=== PATIENT | female | born 1945 | race Caucasian/White ===

== ENCOUNTER 2017-05-08 15:18 | Inpatient (IN) | payer MEDICARE ==
[2017-05-08] MEDS ORDERED: 0.9 % SODIUM CHLORIDE 1,000 ML BAG IV ONE (15:58)
[2017-05-08] MEDS ORDERED: PROMETHAZINE HCL 6.25 MG in 0.9 % SODIUM CHLORIDE 100ML 100 ML IVPB ONE (15:59)
[2017-05-08 16:27] LABS: HEMATOCRIT 32.6 % (35.0-47.0); HEMOGLOBIN 10.3 gm/dl (11.6-16.0); MEAN CELL VOLUME 96.2 fl (81-97); MEAN CORPUSCULAR HGB CONC 31.6 g/dl (32-36); MEAN PLATELET VOLUME 8.9 fl (7.4-10.4); PLATELET COUNT 677 K/uL (130-400); RED BLOOD COUNT 3.39 M/uL (3.80-5.40); RED CELL DISTRIBUTION WIDTH 15.7 % (11.5-14.5)
[2017-05-08 16:40] LABS: BILIRUBIN,TOTAL 0.3 mg/dL (0.2-1.0); CREATININE 1.9 mg/dL (0.5-0.9)
[2017-05-08 16:41] LABS: TOTAL PROTEIN 7.1 g/dL (6.6-8.7)
[2017-05-08 16:42] LABS: MEAN CORPUSCULAR HEMOGLOBIN 30.3 pg (27-33)
[2017-05-08 16:43] LABS: WHITE BLOOD COUNT W/O DIFF 24.1 K/uL (4.2-12.2)
[2017-05-08 16:45] LABS: ALB/GLOB RATIO 1.2 (1.1-1.8); ALBUMIN 3.9 g/dL (4.0-5.0)
[2017-05-08 16:53] LABS: URINE APPEARANCE CLOUDY; URINE BILIRUBIN NEGATIVE (NEGATIVE); URINE BLOOD LARGE (NEGATIVE); URINE COLOR ORANGE; URINE GLUCOSE (UA) NEGATIVE (NEGATIVE); URINE KETONE NEGATIVE (NEGATIVE); URINE LEUKOCYTE ESTERASE TRACE (NEGATIVE); URINE NITRITE NEGATIVE (NEGATIVE); URINE UROBILINOGEN 0.2 E.U./dL (0.20 - 1.00)
[2017-05-08 17:06] LABS: URINE BACTERIA NONE SEEN; URINE EPITHELIAL CELLS 0 - 2 (FEW); URINE WBC 21 - 35 (0-2/hpf)
[2017-05-08 17:29] LABS: ROTOVIRUS NOT DETECTED (NOT DETECT)
[2017-05-08 17:47] LABS: CRYPTOSPORIDIUM PARVUM ANTIGEN NOT DETECTED (NOT DETECT)
[2017-05-08 17:48] LABS: GIARDIA LAMBLIA ANTIGEN NOT DETECTED (NOT DETECT)
[2017-05-08 18:07] LABS: MOLECULAR C DIFF TOXIN SCREEN NOT DETECTED (NOT DETECT)
[2017-05-08] MEDS ORDERED: SODIUM CHLORIDE 0.9% IVPB ONE (18:28)
[2017-05-08] MEDS ORDERED: CEFEPIME HCL IVPB ONE (18:28)
--- NOTE | 2017-05-08 19:01 | Emergency Department Record ---
History of Present Illness - General Chief complaint: Fatigue and Weakness Stated complaint: WEAK Time Seen by Provider: 05/08/17 15:48 Source: Patient Mode of Arrival: Wheelchair Limitations: No limitations - History of Present Illness Initial comments: pt has been sick for few months w bronchitis and with utis. she has been on 3 courses of antibiotics including bactrim i zithromax, clindamycin, she feels like she is getting weaker and weaker. pt has had a splenectomy MD Complaint: Generalized weakness, Lack of energy Onset/Timin -: Week(s) Consistency: Getting worse Improves with: None Worsens with: Exertion Associated Symptoms: Denies other symptoms - Elizabeth Coma Scale Eye Response: (4) Open spontaneously Motor Response: (6) Obeys commands Verbal Response: (5) Oriented [place] Total: 15 - Related Data Home Medications Medication Instructions Recorded Confirmed Last Taken Buspirone HCl [Buspar] 10 mg PO TID 05/08/17 05/08/17 Unknown Fluoxetine HCl 60 mg PO DAILY 05/08/17 05/08/17 Unknown Ibuprofen [Motrin] 800 mg PO TID PRN 05/08/17 05/08/17 Unknown Levothyroxine Sodium 75 mcg PO DAILY 05/08/17 05/08/17 Unknown Multivit with Calcium,Iron,Min 1 tab PO DAILY 05/08/17 05/08/17 Unknown [Multiple Vitamins For Women] Sulfamethoxazole/Trimethoprim 800 mg PO DAILY 05/08/17 05/08/17 Unknown [Bactrim Ds Tablet] Allergies Allergy/AdvReac Type Severity Reaction Status Date / Time Penicillins Allergy RASH Verified 05/08/17 15:23 Travel Screening - Travel/Exposure Within Last 30 Days Have you traveled within the last 30 days?: No - Travel/Exposure Within Last Year Have you traveled outside the [place] in the last year?: No - Additonal Travel Details Have you been exposed to anyone with a communicable illness?: No - Travel Symptoms Symptom Screening: None Review of Systems Reviewed: No additional complaints except as noted below Constitutional: Reports: As per HPI, Weakness. Denies: Chills, Fever, Malaise, Night sweats, Weight change Eyes: Reports: As per HPI. Denies: Eye discharge, Eye pain, Photophobia, Vision change ENT: Reports: As per HPI. Denies: Congestion, Dental pain, Ear pain, Epistaxis , Hearing loss, Throat pain Respiratory: Reports: As per HPI. Denies: Cough, Dyspnea, Hemoptysis, Stridor, Wheezes Cardiovascular: Reports: As per HPI. Denies: Arrhythmia, Chest pain, Dyspnea on exertion, Edema, Murmurs, Orthopnea, Palpitations, Paroxysmal nocturnal dyspnea, Rheumatic Fever, Syncope Endocrine: Reports: As per HPI. Denies: Fatigue, Heat or cold intolerance, Polydipsia, Polyuria Gastrointestinal: Reports: As per HPI. Denies: Abdominal pain, Constipation, Diarrhea, Hematemesis, Hematochezia, Melena, Nausea, Vomiting Genitourinary: Reports: As per HPI. Denies: Abnormal menses, Discharge, Dyspareunia, Dysuria, Frequency, Hematuria, Incontinence, Retention, Urgency Musculoskeletal: Reports: As per HPI. Denies: Arthralgia, Back pain, Gout, Joint swelling, Myalgia, Neck pain Skin: Reports: As per HPI. Denies: Bruising, Change in color, Change in hair/ nails, Lesions, Pruritus, Rash Neurological: Reports: As per HPI, Weakness. Denies: Abnormal gait, Confusion, Headache, Numbness, Paresthesias, Seizure, Tingling, Tremors, Vertigo Psychiatric: Reports: As per HPI. Denies: Anxiety, Auditory hallucinations, Depression, Homicidal thoughts, Suicidal thoughts, Visual hallucinations Hematological/Lymphatic: Reports: As per HPI. 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 - GI Hx GI Disorders: No - Hx Genitourinary Disorders: Yes Hx Bladder Problem: Yes (bladder sling) - ENDOCRINE Hx Endocrine Disorders: Yes Hx Diabetes: No Hx Thyroid Disease: Yes - MUSCULOSKELETAL Hx Musculoskeletal Disorders: Yes Hx Arthritis: Yes - PSYCH Hx Psych Problems: No - HEMATOLOGY/ONCOLOGY Hx Hematology/Oncology Disorders: Yes Hx Anemia: Yes Hx Blood Transfusions: Yes Family Medical History Any Significant Family History?: Yes Hx Diabetes: Brother/Sister Hx Heart Disease: Brother/Sister Physical Exam - General General Appearance: Alert, Oriented x3, Cooperative, Mild distress - Head Head exam: Normal inspection - Eye Eye exam: Normal appearance, PERRL, EOMI Pupils: Normal accommodation - ENT ENT exam: Normal exam, Mucous membranes dry, Normal external ear exam, Normal orophraynx Ear exam: Normal external inspection. negative: External canal tenderness Nasal Exam: Normal inspection. negative: Discharge, Sinus tenderness Mouth exam: Normal external inspection, Tongue normal Teeth exam: Normal inspection. negative: Dental caries Throat exam: Normal inspection. negative: Tonsillar erythema, Tonsillar exudate - Neck Neck exam: Normal inspection, Full ROM. negative: Tenderness - Respiratory Respiratory exam: Normal lung sounds bilaterally. negative: Respiratory distress - Cardiovascular Cardiovascular Exam: Normal rhythm, Normal heart sounds, Tachycardia - GI/Abdominal GI/Abdominal exam: Soft, Normal bowel sounds. negative: Tenderness - Rectal Rectal exam: Deferred - exam: Deferred - Extremities Extremities exam: Normal inspection, Full ROM, Normal capillary refill. negative: Tenderness - Back Back exam: Reports: Normal inspection, Full ROM. Denies: Muscle spasm, Rash noted, Tenderness - Neurological Neurological exam: Alert, CN II-XII intact, Normal gait, Oriented X3 - Psychiatric Psychiatric exam: Normal affect, Normal mood - Skin Skin exam: Dry, Intact, Normal color, Warm Course Vital Signs 05/08/17 05/08/17 15:24 16:34 Temperature 97.8 F Pulse Rate 112 H Pulse Rate [ 98 H Pulse Ox Probe] Respiratory 12 26 H Rate Blood Pressure 110/93 Blood Pressure 93/70 [Right Arm] Pulse Ox 91 L 93 L - Reevaluation(s) Reevaluation #1: 05/08/17 19:04 pt felt a little better. 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 ADM/Transfer/OP Study) - Data Complexity MDM Data: Labs Ordered and/or Reviewed, X-Ray Ordered and/or Reviewed - Lab Data Result diagrams: 05/08/17 16:15 05/08/17 16:15 Lab Results 05/08/17 05/08/17 05/08/17 Range/Units 16:15 16:15 16:45 WBC 24.1 H* (4.2-12.2) K/uL RBC 3.39 L (3.80-5.40) M/uL Hgb 10.3 L (11.6-16.0) gm/dl Hct 32.6 L (35.0-47.0) % MCV 96.2 (81-97) fl MCH 30.3 (27-33) pg MCHC 31.6 L (32-36) g/dl RDW 15.7 H (11.5-14.5) % Plt Count 677 H (130-400) K/uL MPV 8.9 (7.4-10.4) fl Neutrophils % 78.0 (47-80) % Band Neutrophils % 0.0 (0-5) % Eosinophils % Not Reportable Basophils % Not Reportable Lymphocytes 7.0 L (16-45) % Monocytes 13.0 H (0-9) % Basophils 0.0 (0-6) % Eosinophil Count 2.0 (0-6) % Sodium 135 L (136-145) mmol/L Potassium 4.1 (3.4-4.5) mmol/L Chloride 104 (98-107) mmol/L Carbon Dioxide 13.0 L (22-29) mmol/L Anion Gap 18.0 H (7-16) BUN 29 H (8-23) mg/dL Creatinine 1.9 H (0.5-0.9) mg/dL Estimated GFR 28 mL/min Random Glucose 131 H (74-109) mg/dL Lactic Acid (0.5-2.2) mmol/L Calcium 9.4 (8.8-10.2) mg/dL Total Bilirubin 0.30 (0.2-1.0) mg/dL AST 16 (10.0-35.0) U/L ALT 15 (<33) U/L Alkaline Phosphatase 173 H (35-104) U/L Total Protein 7.1 (6.6-8.7) g/dL Albumin 3.9 L (4.0-5.0) g/dL Globulin 3.2 (1.4-4.8) gm/dL Albumin/Globulin Ratio 1.2 (1.1-1.8) Lipase 25 (13-60) U/L TSH (0.270-4.20) uIU/mL Urine Color Urine Appearance Urine pH (5.0-8.0) Ur Specific [place] (1.002-1.030) Urine Protein (NEGATIVE) Urine Glucose (UA) (NEGATIVE) Urine Ketones (NEGATIVE) Urine Blood (NEGATIVE) Urine Nitrite (NEGATIVE) Urine Bilirubin (NEGATIVE) Urine Urobilinogen (0.20 - 1.00) E.U./dL Ur Leukocyte Esterase (NEGATIVE) Urine RBC (NONE SEEN) Urine WBC (0-2/hpf) Ur Epithelial Cells (FEW) Urine Bacteria Stool Occult Blood (NEGATIVE) Stool for White Cells No wbc's observed (NO WBC'S) Rotavirus Antigen (NOT DETECT) C. difficile Ag & Toxin (NOT DETECT) Cryptosporid parvum Ag (NOT DETECT) Giardia lamblia Ag (NOT DETECT) 05/08/17 05/08/17 05/08/17 Range/Units 16:45 16:45 16:50 WBC (4.2-12.2) K/uL RBC (3.80-5.40) M/uL Hgb (11.6-16.0) gm/dl Hct (35.0-47.0) % MCV (81-97) fl MCH (27-33) pg MCHC (32-36) g/dl RDW (11.5-14.5) % Plt Count (130-400) K/uL MPV (7.4-10.4) fl Neutrophils % (47-80) % Band Neutrophils % (0-5) % Eosinophils % Basophils % Lymphocytes (16-45) % Monocytes (0-9) % Basophils (0-6) % Eosinophil Count (0-6) % Sodium (136-145) mmol/L Potassium (3.4-4.5) mmol/L Chloride (98-107) mmol/L Carbon Dioxide (22-29) mmol/L Anion Gap (7-16) BUN (8-23) mg/dL Creatinine (0.5-0.9) mg/dL Estimated GFR mL/min Random Glucose (74-109) mg/dL Lactic Acid (0.5-2.2) mmol/L Calcium (8.8-10.2) mg/dL Total Bilirubin (0.2-1.0) mg/dL AST (10.0-35.0) U/L ALT (<33) U/L Alkaline Phosphatase (35-104) U/L Total Protein (6.6-8.7) g/dL Albumin (4.0-5.0) g/dL Globulin (1.4-4.8) gm/dL Albumin/Globulin Ratio (1.1-1.8) Lipase (13-60) U/L TSH (0.270-4.20) uIU/mL Urine Color [place] H Urine Appearance Cloudy Urine pH 6.0 (5.0-8.0) Ur Specific [place] >= 1.030 (1.002-1.030) Urine Protein 30 mg/dl H (NEGATIVE) Urine Glucose (UA) Negative (NEGATIVE) Urine Ketones Negative (NEGATIVE) Urine Blood Large H (NEGATIVE) Urine Nitrite Negative (NEGATIVE) Urine Bilirubin Negative (NEGATIVE) Urine Urobilinogen 0.2 (0.20 - 1.00) E.U./dL Ur Leukocyte Esterase Trace H (NEGATIVE) Urine RBC 3 - 6 (NONE SEEN) Urine WBC 21 - 35 (0-2/hpf) Ur Epithelial Cells 0 - 2 (FEW) Urine Bacteria None seen Stool Occult Blood Negative (NEGATIVE) Stool for White Cells (NO WBC'S) Rotavirus Antigen Not detected (NOT DETECT) C. difficile Ag & Toxin Not detected (NOT DETECT) Cryptosporid parvum Ag Not detected (NOT DETECT) Giardia lamblia Ag Not detected (NOT DETECT) 05/08/17 05/08/17 Range/Units 17:04 17:50 WBC (4.2-12.2) K/uL RBC (3.80-5.40) M/uL Hgb (11.6-16.0) gm/dl Hct (35.0-47.0) % MCV (81-97) fl MCH (27-33) pg MCHC (32-36) g/dl RDW (11.5-14.5) % Plt Count (130-400) K/uL MPV (7.4-10.4) fl Neutrophils % (47-80) % Band Neutrophils % (0-5) % Eosinophils % Basophils % Lymphocytes (16-45) % Monocytes (0-9) % Basophils (0-6) % Eosinophil Count (0-6) % Sodium (136-145) mmol/L Potassium (3.4-4.5) mmol/L Chloride (98-107) mmol/L Carbon Dioxide (22-29) mmol/L Anion Gap (7-16) BUN (8-23) mg/dL Creatinine (0.5-0.9) mg/dL Estimated GFR mL/min Random Glucose (74-109) mg/dL Lactic Acid 0.9 (0.5-2.2) mmol/L Calcium (8.8-10.2) mg/dL Total Bilirubin (0.2-1.0) mg/dL AST (10.0-35.0) U/L ALT (<33) U/L Alkaline Phosphatase (35-104) U/L Total Protein (6.6-8.7) g/dL Albumin (4.0-5.0) g/dL Globulin (1.4-4.8) gm/dL Albumin/Globulin Ratio (1.1-1.8) Lipase (13-60) U/L TSH 3.90 (0.270-4.20) uIU/mL Urine Color Urine Appearance Urine pH (5.0-8.0) Ur Specific [place] (1.002-1.030) Urine Protein (NEGATIVE) Urine Glucose (UA) (NEGATIVE) Urine Ketones (NEGATIVE) Urine Blood (NEGATIVE) Urine Nitrite (NEGATIVE) Urine Bilirubin (NEGATIVE) Urine Urobilinogen (0.20 - 1.00) E.U./dL Ur Leukocyte Esterase (NEGATIVE) Urine RBC (NONE SEEN) Urine WBC (0-2/hpf) Ur Epithelial Cells (FEW) Urine Bacteria Stool Occult Blood (NEGATIVE) Stool for White Cells (NO WBC'S) Rotavirus Antigen (NOT DETECT) C. difficile Ag & Toxin (NOT DETECT) Cryptosporid parvum Ag (NOT DETECT) Giardia lamblia Ag (NOT DETECT) - Radiology Data Radiology results: Report reviewed, Image reviewed Disposition Disposition: Admit Clinical Impression: Pyelonephritis, Renal insufficiency, Asplenia after surgical procedure, Dehydration Disposition: Still a Patient at [facility] Decision to Admit: Admit from ER Decision to Admit Date: 05/08/17 Decision to Admit Time: 19:07 Quality - Quality Measures Quality Measures: N/A - Blood Pressure Screening Does Patient Have Any of the Following: No Blood Pressure Classification: Hypertensive Reading Systolic Measurement: 110 Diastolic Measurement: 93 Screening for High Blood Pressure: < Pre-Hypertensive BP, F/U Documented > [ [id number]] Pre-Hypertensive Follow-up Interventions: Follow-up with rescreen every year.
[2017-05-08] MEDS ORDERED: ACETAMINOPHEN 500 MG TABLET PO PRN (20:02)
[2017-05-08] MEDS ORDERED: IBUPROFEN 800 MG PO PRN (20:02)
--- NOTE | 2017-05-08 20:20 | History & Physical ---
History of Present Illness - Date of Service Date of Service for History & Physical: 05/09/17 - History of Present Illness Admitting Diagnosis: pyelonephritis, sepsis, asplenic, renal insufficiency, dehydration History of Present Illness: Pt. is a 72 year-old female who presented to the ED on 05/08/17 for generalized weakness and lack of energy. She stated that she had been ill for a few months with bronchitis and UTIs. She had been on 3 courses of antibiotics, including bactrim, clindamycin, and zithromax. She states that she has been feeling more weak. 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 In the ED, pt's vital signs were: BP 110/93, HR 112, RR 12, 91% on room air, and T 97.8. Labs revealed a WBC of 24.1, Hgb 10.3, Hct 32.6, BUN 26, creatinine 1.9, Na 135 and K of 4.1. Lactic acid and TSH were wnl. UA was positive for protein 30mg/dl, large blood, trace leuks, sent for culture. Blood and stool cultures were also obtained, stool negative for WBCs, occult blood, C. diff, and rotavirus. Her chest x-ray was negative for acute intrathoracic process. Pt. was admitted for inpatient due to her elevated WBC, persistent UTI- likely pyelonephritis, dehydration, renal insufficiency, and history of splenectomy. IV antibiotics (cefepime 1gm) and IV fluids (0.9% NaCl at 125/hr) were ordered and administered. 05/09/17 1000: Pt. is resting comfortably in bed at the present time, her family is currently visiting. She states that her weakness has greatly improved today. Her vital signs have remained stable throughout the night. Her labs have improved this morning: WBC now 12.6, BUN 25, creatinine 1.3. Pt. complained of loose stools throughout the night, stool cultures were obtained in ED. Immodium 2mg PO ordered and was helpful in reducing frequency of loose stools per pt. Pt. complained of left flank pain this morning, 8/10, constant ache, 800mg ibuprofen PO administered. Plan to continue to monitor vital signs, CBC with diff and CMP for inflammatory response and renal function. Plan to continue IV fluids and IV cefepime 1gm every 8 hours. Travel Screening - Travel/Exposure Within Last 30 Days Have you traveled within the last 30 days?: No - Travel/Exposure Within Last Year Have you traveled outside the [place] in the last year?: No - Additonal Travel Details Have you been exposed to anyone with a communicable illness?: No - Travel Symptoms Symptom Screening: None Review of Systems Constitutional: Reports: As per HPI, Weakness. Denies: Chills, Fever, Malaise, Night sweats, Weight change Eyes: Reports: As per HPI. Denies: Eye discharge, Eye pain, Photophobia, Vision change ENT: Reports: As per HPI. Denies: Congestion, Dental pain, Ear pain, Epistaxis , Hearing loss, Throat pain Respiratory: Reports: As per HPI. Denies: Cough, Dyspnea, Hemoptysis, Stridor, Wheezes Cardiovascular: Reports: As per HPI. Denies: Arrhythmia, Chest pain, Dyspnea on exertion, Edema, Murmurs, Orthopnea, Palpitations, Paroxysmal nocturnal dyspnea, Rheumatic Fever, Syncope Endocrine: Reports: As per HPI. Denies: Fatigue, Heat or cold intolerance, Polydipsia, Polyuria Gastrointestinal: Reports: As per HPI. Denies: Abdominal pain, Constipation, Diarrhea, Hematemesis, Hematochezia, Melena, Nausea, Vomiting Genitourinary: Reports: As per HPI. Denies: Abnormal menses, Discharge, Dyspareunia, Dysuria, Frequency, Hematuria, Incontinence, Retention, Urgency Musculoskeletal: Reports: As per HPI. Denies: Arthralgia, Back pain, Gout, Joint swelling, Myalgia, Neck pain Skin: Reports: As per HPI. Denies: Bruising, Change in color, Change in hair/ nails, Lesions, Pruritus, Rash Neurological: Reports: As per HPI, Weakness. Denies: Abnormal gait, Confusion, Headache, Numbness, Paresthesias, Seizure, Tingling, Tremors, Vertigo Psychiatric: Reports: As per HPI. Denies: Anxiety, Auditory hallucinations, Depression, Homicidal thoughts, Suicidal thoughts, Visual hallucinations Hematological/Lymphatic: Reports: As per HPI. 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 - GI Hx GI Disorders: No - Hx Genitourinary Disorders: Yes Hx Bladder Problem: Yes (bladder sling) - ENDOCRINE Hx Endocrine Disorders: Yes Hx Diabetes: No Hx Thyroid Disease: Yes - MUSCULOSKELETAL Hx Musculoskeletal Disorders: Yes Hx Arthritis: Yes - PSYCH Hx Psych Problems: No - HEMATOLOGY/ONCOLOGY Hx Hematology/Oncology Disorders: Yes Hx Anemia: Yes Hx Blood Transfusions: Yes Family Medical History Any Significant Family History?: Yes Hx Diabetes: Brother/Sister Hx Heart Disease: Brother/Sister H&P Meds/Allergies - Allergies Allergies: Allergies Allergy/AdvReac Type Severity Reaction Status Date / Time Penicillins Allergy RASH Verified 05/08/17 15:23 - Home Medications Home Medications Medication Instructions Recorded Confirmed Last Taken Buspirone HCl [Buspar] 10 mg PO TID 05/08/17 05/08/17 Unknown Fluoxetine HCl 60 mg PO DAILY 05/08/17 05/08/17 Unknown Ibuprofen [Motrin] 800 mg PO TID PRN 05/08/17 05/08/17 Unknown Levothyroxine Sodium 75 mcg PO DAILY 05/08/17 05/08/17 Unknown Multivit with Calcium,Iron,Min 1 tab PO DAILY 05/08/17 05/08/17 Unknown [Multiple Vitamins For Women] Sulfamethoxazole/Trimethoprim 800 mg PO DAILY 05/08/17 05/08/17 Unknown [Bactrim Ds Tablet] - Active Medications Active Medications: Current Medications Acetaminophen (Tylenol 500mg Tab) 1,000 mg PO Q6H PRN PRN Reason: PAIN/TEMP Buspirone HCl (Buspar) 10 mg PO TID MAYKEL Fluoxetine HCl (Prozac) 60 mg PO DAILY MAYKEL Sodium Chloride () 1,000 mls @ 125 mls/hr IV .Q8H PRN PRN Reason: LARGE VOLUME IV CEFEPIME HCL 1 gm/ Sodium (Chloride) 100 mls @ 200 mls/hr IVPB Q8HR MAYKEL Ibuprofen (Motrin 400mg) 800 mg PO TID PRN PRN Reason: Pain - General Levothyroxine Sodium (Synthroid) 75 mcg PO 0600 [facility] Physical Exam - Vital Signs Vital Signs: Vital Signs - Last 24 Hrs Temp Pulse Resp BP Pulse Ox 05/08/17 19:45 98.5 F 102 H 20 96/74 95 - General General Appearance: Alert, Oriented x3, Cooperative, No acute distress Limitations: No limitations - Head Head exam: Normal inspection - Eye Eye exam: Normal appearance, PERRL, EOMI Pupils: Normal accommodation - ENT ENT exam: Normal exam, Mucous membranes dry, Normal external ear exam, Normal orophraynx Ear exam: Normal external inspection. negative: External canal tenderness Nasal Exam: Normal inspection. negative: Discharge, Sinus tenderness Mouth exam: Normal external inspection, Tongue normal Teeth exam: Normal inspection. negative: Dental caries Throat exam: Normal inspection. negative: Tonsillar erythema, Tonsillar exudate - Neck Neck exam: Normal inspection, Full ROM. negative: Tenderness - Respiratory Respiratory exam: Normal lung sounds bilaterally. negative: Respiratory distress - Cardiovascular Cardiovascular Exam: Regular rate, Normal rhythm, Normal heart sounds, Systolic murmur Peripheral Pulses: 2+: Dorsalis Pedis (R), Dorsalis Pedis (L) - GI/Abdominal GI/Abdominal exam: Soft, Normal bowel sounds. negative: Tenderness - Rectal Rectal exam: Deferred - exam: Deferred - Extremities Extremities exam: Normal inspection, Full ROM, Normal capillary refill. negative: Tenderness - Back Back exam: Reports: Normal inspection, CVA tenderness (L), Full ROM. Denies: Muscle spasm, Rash noted, Tenderness - Neurological Neurological exam: Alert, CN II-XII intact, Normal gait, Oriented X3 - Psychiatric Psychiatric exam: Normal affect, Normal mood - Skin Skin exam: Dry, Intact, Normal color, Warm Results - Labs Result Diagrams: 05/09/17 06:25 05/09/17 06:25 - Imaging and Cardiology Chest x-ray Status: Report reviewed (No acute process identified) VTE H&P Assessment - Risk for VTE Risk for VTE: Yes Risk Level: Low Risk Assessment Date: 05/09/17 Risk Assessment Time: 10:54 VTE Orders Placed or Will Be Placed: Yes Plan - Inpatient Certification Inpatient Certification: Admit to inpatient care: Based on my medical assessment, after consideration of patient's risk factors (age, co-morbidities and patient presenting symptoms and acuity), I expect that this patient will remain in the hospital greater than or equal to two midnights and that the services needed warrant inpatient care because: Patient Risk Factors: [] Estimated length of stay: [] The patient may reasonably be expected to be discharged or transferred to a hospital within 96 hours after admission to [facility]. Services needed: [] Post hospital care (if known): [] I certify that my determination is in accordance with my understanding of Medicare requirements for reasonable and necessary inpatient services. - Detailed Diagnosis and Plan (1) Pyelonephritis Current Visit: Yes Status: Acute Base Code: N12 - TUBULO-INTERSTITIAL NEPHRITIS, NOT SPCF ACUTE OR CHRONIC Comment: 05/09/17 1000: Pt. presented to the ED on 05/08/17 for worsening weakness, she reported being treated for UTIs with with 3 different abx over last 3 months (bactrim, zithromax, and clinda). WBC 24.1 upon admission. UA pos for protein, large blood and trace leuks. Pt. does report L flank pain. Plan to continue IV cefepime 1gm every 8 hours. WBC 12.6 this morning. UA culture pending. (2) Dehydration Current Visit: Yes Status: Acute Base Code: E86.0 - DEHYDRATION Comment: 1000: Pt. c/o weakness upon arrival to ED, likely secondary to dehydration. Pt. reports improving strength today. Plan to continue IV fluids , 0.9% NaCl at 125/hour. Will continue to monitor vitals, CBC and CMP. (3) Renal insufficiency Current Visit: Yes Status: Acute Base Code: N28.9 - DISORDER OF KIDNEY AND URETER, UNSPECIFIED Comment: 05/09/17 1000: CMP upon admission showed BUN of 29 and creatinine of 1.9. BUN this morning was 25 and creatinine 1.3. Plan to continue IV fluids, 0.9% NaCL and IV antibiotics- cefepime 1gm q8h for suspected pyelonephritis. (4) Asplenia after surgical procedure Current Visit: Yes Status: Acute Base Code: Z90.81 - ACQUIRED ABSENCE OF SPLEEN Comment: 05/09/17 1000: Pt history of splenectomy from complication of gastric surgery (pt. unsure what type of gastric surgery). WBC upon admission was 24.1, decreased to 12.6 this morning. Plan to continue IV fluids and IV antibiotics for suspected pyelonephritis. Will continue to monitor vital signs and labs for immune response. (5) At risk for deep venous thrombosis Current Visit: Yes Status: Acute Base Code: Z91.89 - OTH PERSONAL RISK FACTORS, NOT ELSEWHERE CLASSIFIED Comment: 05/09/17 1000: Pt. is at increased risk for DVT- decreased mobility from weakness secondary to infection- suspected pyelonephritis. Lovenox 40mg SC daily ordered. (6) Full code status Current Visit: Yes Status: Acute Base Code: Z78.9 - OTHER SPECIFIED HEALTH STATUS Comment: 05/09/17: Pt. is full code status
[2017-05-08] MEDS ORDERED: PROMETHAZINE HCL 6.25 MG in 0.9 % SODIUM CHLORIDE 100ML 100 ML IVPB PRN (20:44)
[2017-05-08] MEDS ORDERED: SODIUM CHLORIDE 0.9% IVPB SCH ×4 (22:00)
[2017-05-08] MEDS ORDERED: BUSPIRONE HCL 10 MG PO SCH (22:00)
[2017-05-08] MEDS ORDERED: CEFEPIME HCL IVPB SCH ×4 (22:00)
[2017-05-08] MEDS: BUSPIRONE 5 MG TABLET PO SCH (22:21)
[2017-05-08] MEDS: SODIUM CHLORIDE 0.9% IVPB SCH (22:22)
[2017-05-08] MEDS: CEFEPIME HCL IVPB SCH (22:22)
[2017-05-09] MEDS: LEVOTHYROXINE SODIUM 75 MCG TABLET PO SCH (06:05)
[2017-05-09] MEDS: LOPERAMIDE 2 MG CAPSULE PO PRN (06:48)
[2017-05-09 06:52] LABS: HEMATOCRIT 28.8 % (35.0-47.0); HEMOGLOBIN 8.8 gm/dl (11.6-16.0); MEAN CORPUSCULAR HEMOGLOBIN 29.6 pg (27-33); MEAN CORPUSCULAR HGB CONC 30.6 g/dl (32-36); MEAN PLATELET VOLUME 9.3 fl (7.4-10.4); PLATELET COUNT 634 K/uL (130-400); RED BLOOD COUNT 2.97 M/uL (3.80-5.40); RED CELL DISTRIBUTION WIDTH 15.8 % (11.5-14.5); WHITE BLOOD COUNT W/O DIFF 12.6 K/uL (4.2-12.2)
[2017-05-09 07:11] LABS: CREATININE 1.3 mg/dL (0.5-0.9)
[2017-05-09 07:14] LABS: MICROCYTOSIS 1+; POIKILOCYTOSIS 1+
[2017-05-09 07:16] LABS: ACANTHROCYTES 1+
[2017-05-09] MEDS: FLUOXETINE HCL 20 MG CAPSULE PO SCH (09:37)
[2017-05-09] MEDS: BUSPIRONE 5 MG TABLET PO SCH ×3 (09:38→21:16)
[2017-05-09] MEDS: CEFEPIME HCL IVPB SCH ×2 (09:39→21:17)
[2017-05-09] MEDS: SODIUM CHLORIDE 0.9% IVPB SCH ×2 (09:39→21:17)
[2017-05-09] MEDS ORDERED: FLUOXETINE HCL 60 MG PO SCH (10:00)
[2017-05-09] MEDS ORDERED: LEVOTHYROXINE SODIUM 75 MCG TABLET PO SCH (10:00)
--- NOTE | 2017-05-09 10:03 | RADIOLOGY REPORT ---
DATE: 05/08/2017. EXAM: TWO VIEWS OF THE CHEST. HISTORY: Weakness and fatigue. TECHNIQUE: Two views of the chest were provided. COMPARISON: None. FINDINGS: The cardiomediastinal silhouette is within normal limits for size and contour. The zander appear unremarkable. There is no radiographic evidence of any focal infiltrate or pleural effusion. No pneumothorax is noted. IMPRESSION: NO RADIOGRAPHIC EVIDENCE OF AN ACUTE INTRATHORACIC PROCESS. JOB NUMBER: [id number] [facility]
[2017-05-09] MEDS: IBUPROFEN 400 MG TABLET PO PRN ×2 (10:15→22:11)
[2017-05-09] MEDS: 0.9 % SODIUM CHLORIDE 1000ML 1,000 ML IV PRN (15:09)
[2017-05-09] MEDS ORDERED: ENOXAPARIN 30 MG/0.3 ML SYR SQ SCH (22:00)
[2017-05-10] MEDS: LOPERAMIDE 2 MG CAPSULE PO PRN (03:56)
[2017-05-10] MEDS: LEVOTHYROXINE SODIUM 75 MCG TABLET PO SCH (06:01)
[2017-05-10 06:36] LABS: HEMATOCRIT 24.4 % (35.0-47.0); HEMOGLOBIN 7.5 gm/dl (11.6-16.0); MEAN CORPUSCULAR HEMOGLOBIN 30.1 pg (27-33); MEAN CORPUSCULAR HGB CONC 30.7 g/dl (32-36); MEAN PLATELET VOLUME 8.8 fl (7.4-10.4); RED BLOOD COUNT 2.49 M/uL (3.80-5.40); WHITE BLOOD COUNT W/O DIFF 9.7 K/uL (4.2-12.2)
[2017-05-10 06:57] LABS: ALBUMIN 2.6 g/dL (4.0-5.0); BILIRUBIN,TOTAL 0.4 mg/dL (0.2-1.0); TOTAL PROTEIN 5.1 g/dL (6.6-8.7)
[2017-05-10 06:58] LABS: ACANTHROCYTES 1+; CORRECTED WBC 9.3 K/mm3; PLATELET COUNT 525 K/uL (130-400); POIKILOCYTOSIS 1+; SCHISTOCYTES 1+
[2017-05-10] MEDS: CEFEPIME HCL IVPB SCH (09:35)
[2017-05-10] MEDS: SODIUM CHLORIDE 0.9% IVPB SCH (09:35)
[2017-05-10] MEDS: BUSPIRONE 5 MG TABLET PO SCH (09:36)
[2017-05-10] MEDS: FLUOXETINE HCL 20 MG CAPSULE PO SCH (09:36)
[2017-05-10] MEDS: 0.9 % SODIUM CHLORIDE 1000ML 1,000 ML IV PRN (09:37)
[2017-05-10] MEDS: IBUPROFEN 400 MG TABLET PO PRN (10:00)
--- NOTE | 2017-05-10 11:15 | Discharge Summary ---
Providers Discharge Summary Date: 05/10/17 Date of admission: 05/08/17 19:40 Expected Date of Discharge: 05/10/17 Attending physician: SULEMA URIAS Physical Exam - Vital Signs Vital Signs: Vital Signs - Last 24 Hrs Temp Pulse Resp BP Pulse Ox 05/10/17 09:55 98.7 F 80 16 112/67 94 L 05/10/17 06:00 97.5 F L 74 17 101/69 93 L 05/09/17 22:00 97.9 F 90 20 117/64 91 L 05/09/17 21:00 18 05/09/17 17:47 98.1 F 73 18 98/62 93 L 05/09/17 14:00 98.3 F 79 18 97/59 92 L - General General Appearance: Alert, Oriented x3, Cooperative, No acute distress Limitations: No limitations - Head Head exam: Normal inspection - Eye Eye exam: Normal appearance, PERRL, EOMI Pupils: Normal accommodation - ENT ENT exam: Normal exam, Mucous membranes dry, Normal external ear exam, Normal orophraynx Ear exam: Normal external inspection. negative: External canal tenderness Nasal Exam: Normal inspection. negative: Discharge, Sinus tenderness Mouth exam: Normal external inspection, Tongue normal Teeth exam: Normal inspection. negative: Dental caries Throat exam: Normal inspection. negative: Tonsillar erythema, Tonsillar exudate - Neck Neck exam: Normal inspection, Full ROM. negative: Tenderness - Respiratory Respiratory exam: Normal lung sounds bilaterally. negative: Respiratory distress - Cardiovascular Cardiovascular Exam: Regular rate, Normal rhythm, Normal heart sounds, Systolic murmur Peripheral Pulses: 2+: Dorsalis Pedis (R), Dorsalis Pedis (L) - GI/Abdominal GI/Abdominal exam: Soft, Normal bowel sounds. negative: Tenderness - Rectal Rectal exam: Deferred - exam: Deferred - Extremities Extremities exam: Normal inspection, Full ROM, Normal capillary refill. negative: Tenderness - Back Back exam: Reports: Normal inspection, CVA tenderness (L), Full ROM. Denies: Muscle spasm, Rash noted, Tenderness - Neurological Neurological exam: Alert, CN II-XII intact, Normal gait, Oriented X3 - Psychiatric Psychiatric exam: Normal affect, Normal mood - Skin Skin exam: Dry, Intact, Normal color, Warm Hospitalization - Hospitalization Admission Diagnosis: pyelonephritis, sepsis, asplenic, renal insufficiency, dehydration - Problem List/Discharge Diagnosis (1) Pyelonephritis Current Visit: Yes Status: Acute Base Code: N12 - TUBULO-INTERSTITIAL NEPHRITIS, NOT SPCF ACUTE OR CHRONIC Comment: 05/10/17 1200: Pt. presented to the ED on 05/08/17 for worsening weakness, she reported being treated for UTIs with with 3 different abx over last 3 months (bactrim, zithromax, and clinda). WBC 24.1 upon admission. UA pos for protein, large blood and trace leuks. Pt. does report L flank pain. UA culture pending. WBC 9.7 this morning. Pt. have remained afebrile and presently denies left flank pain. Plan to discharge home today- will continue PO antibiotic- cefdinir 300mg bid for 5 more days. Recommend f/u with urology. (2) Dehydration Current Visit: Yes Status: Acute Base Code: E86.0 - DEHYDRATION Comment: 1100: Pt. c/o weakness upon arrival to ED, likely secondary to dehydration. Pt. reports continued improvement in strength today. Renal function progressively improving on CMP. Plan to discharge home today. (3) Renal insufficiency Current Visit: Yes Status: Acute Base Code: N28.9 - DISORDER OF KIDNEY AND URETER, UNSPECIFIED Comment: 05/09/17 1000: Resolving. CMP upon admission showed BUN of 29 and creatinine of 1.9. BUN this morning was 16 and creatinine 1.0. Plan to discharge home today. (4) Asplenia after surgical procedure Current Visit: Yes Status: Acute Base Code: Z90.81 - ACQUIRED ABSENCE OF SPLEEN Comment: 05/10/17 1100: Pt history of splenectomy from complication of gastric surgery (pt. unsure what type of gastric surgery). WBC upon admission was 24.1, decreased to 9.7 this morning. Plan to discharge home today, recommend f/u with pcp within 1 week. (5) At risk for deep venous thrombosis Current Visit: Yes Status: Acute Base Code: Z91.89 - OTH PERSONAL RISK FACTORS, NOT ELSEWHERE CLASSIFIED Comment: 05/10/17 1100: Pt. will discharge home today and increase activity to baseline as tolerated. (6) Full code status Current Visit: Yes Status: Acute Base Code: Z78.9 - OTHER SPECIFIED HEALTH STATUS Comment: 2/04/18: Pt. remains full code status - Disposition Discharge home, pt. lives with son - Hospitalization Course Disposition: Home, Self-Care Hospital Course: Pt. is a 72 year-old female who presented to the ED on 05/08/17 for generalized weakness and lack of energy. She stated that she had been ill for a few months with bronchitis and UTIs. She had been on 3 courses of antibiotics, including bactrim, clindamycin, and zithromax. She states that she has been feeling more weak. 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 In the ED, pt's vital signs were: BP 110/93, HR 112, RR 12, 91% on room air, and T 97.8. Labs revealed a WBC of 24.1, Hgb 10.3, Hct 32.6, BUN 26, creatinine 1.9, Na 135 and K of 4.1. Lactic acid and TSH were wnl. UA was positive for protein 30mg/dl, large blood, trace leuks, sent for culture. Blood and stool cultures were also obtained, stool negative for WBCs, occult blood, C. diff, and rotavirus. Her chest x-ray was negative for acute intrathoracic process. Pt. was admitted for inpatient due to her elevated WBC, persistent UTI- likely pyelonephritis, dehydration, renal insufficiency, and history of splenectomy. IV antibiotics (cefepime 1gm) and IV fluids (0.9% NaCl at 125/hr) were ordered and administered. 05/09/17 1000: Pt. is resting comfortably in bed at the present time, her family is currently visiting. She states that her weakness has greatly improved today. Her vital signs have remained stable throughout the night. Her labs have improved this morning: WBC now 12.6, BUN 25, creatinine 1.3. Pt. complained of loose stools throughout the night, stool cultures were obtained in ED. Immodium 2mg PO ordered and was helpful in reducing frequency of loose stools per pt. Pt. complained of left flank pain this morning, 8/10, constant ache, 800mg ibuprofen PO administered. Plan to continue to monitor vital signs, CBC with diff and CMP for inflammatory response and renal function. Plan to continue IV fluids and IV cefepime 1gm every 8 hours. 05/10/17 1120: Pt. states that she is feeling improved strength this morning. She states that her left flank pain has resolved. Her CBC and CMP continue to improve: WBC now 9.7, BUN 16, creatinine 1.0. Her vital signs have remained stable. She continues to have some loose stools, however, she states that the frequency is returning to her norm. Plan to discharge home this afternoon and continue PO antibiotic therapy- cefdinir 300mg twice daily for 5 more days. Pt. lives at home with son. Recommend f/u with pcp within 1 week and f/u with urology regarding frequency of recent UTIs and pyelonephritis. Abnormal Labs: Abnormal Lab Results 05/09/17 05/09/17 05/10/17 Range/Units 06:25 06:25 06:30 WBC 12.6 H (4.2-12.2) K/uL RBC 2.97 L 2.49 L (3.80-5.40) M/uL Hgb 8.8 L 7.5 L (11.6-16.0) gm/dl Hct 28.8 L 24.4 L (35.0-47.0) % MCV 98.0 H (81-97) fl MCHC 30.6 L 30.7 L (32-36) g/dl RDW 15.8 H 16.0 H (11.5-14.5) % Plt Count 634 H 525 H (130-400) K/uL Lymphocytes 15.0 L (16-45) % Chloride 112 H (98-107) mmol/L Carbon Dioxide 13.0 L (22-29) mmol/L BUN 25 H (8-23) mg/dL Creatinine 1.3 H (0.5-0.9) mg/dL Calcium 8.5 L (8.8-10.2) mg/dL Alkaline Phosphatase (35-104) U/L Total Protein (6.6-8.7) g/dL Albumin (4.0-5.0) g/dL Albumin/Globulin Ratio (1.1-1.8) 05/10/17 Range/Units 06:30 WBC (4.2-12.2) K/uL RBC (3.80-5.40) M/uL Hgb (11.6-16.0) gm/dl Hct (35.0-47.0) % MCV (81-97) fl MCHC (32-36) g/dl RDW (11.5-14.5) % Plt Count (130-400) K/uL Lymphocytes (16-45) % Chloride 114 H (98-107) mmol/L Carbon Dioxide 14.0 L (22-29) mmol/L BUN (8-23) mg/dL Creatinine 1.0 H (0.5-0.9) mg/dL Calcium 8.1 L (8.8-10.2) mg/dL Alkaline Phosphatase 120 H (35-104) U/L Total Protein 5.1 L (6.6-8.7) g/dL Albumin 2.6 L (4.0-5.0) g/dL Albumin/Globulin Ratio 1.0 L (1.1-1.8) Condition at Discharge: (2) Stable Discharge Diagnosis: Pyelonephritis, dehydration VTE Discharge VTE Reason For No Overlap Therapy: Not Indicated (Pt. will increase activty to baseline as tolerated) Discharge Medications - Discharge Medications Prescriptions: Cefdinir 300 mg PO BID #10 capsule Home Medications: Ambulatory Orders Buspirone HCl [Buspar] 10 mg PO TID 05/08/17 [Last Taken Unknown] Fluoxetine HCl 60 mg PO DAILY 05/08/17 [Last Taken Unknown] Ibuprofen [Motrin] 800 mg PO TID PRN 05/08/17 [Last Taken Unknown] Levothyroxine Sodium 75 mcg PO DAILY 05/08/17 [Last Taken Unknown] Multivit with Calcium,Iron,Min [Multiple Vitamins For Women] 1 tab PO DAILY 05/24 [Last Taken Unknown] Cefdinir 300 mg PO BID #10 capsule 05/10/17 [Last Taken Unknown] Discharge Plan - Discharge Instructions Activity at Discharge: Increase Activity as Tolerated Diet at Discharge: Regular Diet Additional Instructions: Start: Encourage increasing fluid intake Follow up with pcp within 1 week Make appointment to follow up with urology regarding recent frequent urinary tract infections and kidney infection Quality Measures - Quality Measures Quality Measures: Advance Directives, Documentation of Current Medications in Medical Record, Elder Maltreatment Screen and Follow-Up Plan, Screening for High Blood Pressure and F/U Documented - Current Medications Quality Measure: Measure #130: Documentation of Current Medications Documentation of Current Medications: <Current Medications Documented/Reviewed> [G8427] - Blood Pressure Screening Quality Measure: Screening for High Blood Pressure and Follow-Up Documented Does Patient Have Any of the Following: No, Active Dx of HTN Blood Pressure Classification: Normal BP Reading Systolic Measurement: 96 Diastolic Measurement: 74 Screening for High Blood Pressure: < Normal BP, F/U Not Required > [G8783] - Advance Directives Quality Measure: Measure #47: Care Plan Advance Directives Established: No Advance Directives Information Provided To Patient: Declined Advance Directives on File: No Living Will: No Power of Hydraulic Tester: No Advance Care Planning: <Care Plan/Decision Maker Documented; Discussed & Documented> [5663F] - Elder Abuse Suspicion Index Screening: Elder Abuse Suspicion Index Screening Rely on people for bathing, dressing, shopping, banking, etc: No Prevented from getting food, clothes, medication, etc: No Made to feel shamed or threatened by someone: No Forced to sign papers or use money against will: No Feel afraid, touched in ways not wanted or hurt physically: No Poor eye contact, withdrawn, malnourished, cuts or bruises: No Screening Result: Negative result EASI Reference Information: Pari BARR, Rick C, Destinee D, Latoya Lemos.Development and validation of a tool to assist physicians identification of elder abuse: The Elder Abuse Suspicion Index (EASI ). Journal of Elder Abuse and Neglect, 2008; 20 (3): 276-300. - Elder Maltreatment Screen Quality Measures: Elder Maltreatment Screen and Follow-Up Plan Elder Maltreatment Screen: <Negative, No Follow-Up Plan Required> [G8734]
[2017-05-10] MEDS ORDERED: CEFDINIR 300 MG CAPSULE PO SCH (22:00)
== END 2017-05-10 13:06 | disposition home or self-care (01) | DRG 690 ==
LOC: ER 15:18 → MEDSURG 19:40
PROVIDERS: ADMIT Internal Medicine; ATTEND Internal Medicine
DX: N12 Tubulo-interstitial nephritis, not specified as acute or chronic (principal); N28.9 Disorder of kidney and ureter, unspecified; E86.0 Dehydration; Z87.440 Personal history of urinary (tract) infections; R53.1 Weakness; R53.83 Other fatigue; D64.9 Anemia, unspecified; R11.11 Vomiting without nausea; R19.7 Diarrhea, unspecified; Z90.81 Acquired absence of spleen; Z91.89 Other specified personal risk factors, not elsewhere classified; I69.998 Other sequelae following unspecified cerebrovascular disease
CPT/HCPCS: 71046; 80048; 80053; 81001; 82272; 83605; 83690; 84443; 85027; 87329; 87425; 87427; 87493; 89055; 96365; 96366; 99223; 99239; 99285; J1650; J2550; J7030

== ENCOUNTER 2018-01-04 19:44 | Emergency (ER) | payer MEDICARE ==
--- NOTE | 2018-01-04 20:00 | Emergency Department Record ---
History of Present Illness - General Chief complaint: Female Urogenital Problem Stated complaint: HERNIA SURGERY TODAY/ CANT URINATE Time Seen by Provider: 01/04/18 19:55 Source: Patient Mode of Arrival: Ambulatory Limitations: No limitations - History of Present Illness Initial comments: 72 yo female presents to ED for evaluation of urinary retention symptoms following hernia repair surgery earlier today. Patient reports that she last urinated at 11.5 hours ago, reports pain and spasm to the lower abdomen. Patient reports that she was unable to urinate following surgery but was discharged home. Patient denies fevers, chills, or vomiting symptoms. MD Complaint: Other Onset/Timin -: Hour(s) Location: Suprapubic Radiation: Non-radiating Severity: Severe Quality: Cramping Consistency: Constant Improves with: None Worsens with: None Patient : No Associated Symptoms: Denies other symptoms - Related Data Home Medications Medication Instructions Recorded Confirmed Last Taken Hydrocodone/APAP 5/325Mg [[place] 1 each PO Q6H 01/04/18 01/04/18 Unknown 5Mg/325Mg] Previous Rx's Medication Instructions Recorded Ciprofloxacin HCl [Cipro] 500 mg PO Q12HR #13 tablet 01/04/18 Allergies Allergy/AdvReac Type Severity Reaction Status Date / Time Penicillins Allergy RASH Unverified 12/16/17 08:10 Travel Screening - Travel/Exposure Within Last 30 Days Have you traveled within the last 30 days?: No Review of Systems Constitutional: Denies: Chills, Fever, Malaise, Night sweats Eyes: Denies: Eye discharge, Eye pain ENT: Denies: Congestion, Ear pain, Epistaxis Cardiovascular: Denies: Chest pain, Dyspnea on exertion Endocrine: Denies: Fatigue, Heat or cold intolerance Gastrointestinal: Reports: Abdominal pain. Denies: Nausea, Vomiting Genitourinary: Reports: Incontinence. Denies: Retention Musculoskeletal: Denies: Arthralgia, Back pain, Gout, Joint swelling Skin: Denies: Bruising, Change in color, Change in hair/nails Neurological: Denies: Abnormal gait, Confusion, Headache, Seizure Psychiatric: Denies: Anxiety Hematological/Lymphatic: Denies: Anemia, Blood Clots Past Medical History - SOCIAL HISTORY Smoking Status: Never smoker - RESPIRATORY Hx Respiratory Disorders: No - CARDIOVASCULAR Hx Cardio Disorders: Yes - NEURO Hx Neuro Disorders: Yes Hx Headaches: Yes (occassionally) Comment:: Benign essential tremors - GI Hx GI Disorders: Yes Hx Abdominal Pain: Yes (at times from hernia) - Hx Genitourinary Disorders: Yes Hx UTI: Yes (frequent controlled with 3 times a wk ABX) - ENDOCRINE Hx Endocrine Disorders: Yes - MUSCULOSKELETAL Hx Musculoskeletal Disorders: Yes Hx Arthritis: Yes (wrists) - PSYCH Hx Psych Problems: No Hx Anxiety: No - HEMATOLOGY/ONCOLOGY Hx Hematology/Oncology Disorders: Yes Hx Anemia: Yes (in past) Hx Blood Transfusions: Yes Hx Blood Transfusion Reaction: No Family Medical History Hx Diabetes: Brother/Sister Hx Heart Disease: Brother/Sister Physical Exam - General General Appearance: Alert, Oriented x3, Cooperative, Moderate distress Limitations: No limitations - Head Head exam: Atraumatic, Normocephalic, Normal inspection Head exam detail: negative: Abrasion, Contusion, Ramires's sign, General tenderness, Hematoma, Laceration - Eye Eye exam: Normal appearance. negative: Conjunctival injection, Periorbital swelling, Periorbital tenderness, Scleral icterus - ENT Ear exam: negative: Auricular hematoma, Auricular trauma Nasal Exam: negative: Active bleeding, Discharge, Dried blood, Foreign body Mouth exam: negative: Drooling, Laceration, Muffled voice, Tongue elevation - Neck Neck exam: Normal inspection. negative: Meningismus, Tenderness - Respiratory Respiratory exam: Normal lung sounds bilaterally. negative: Rales, Respiratory distress, Rhonchi, Stridor - Cardiovascular Cardiovascular Exam: Regular rate, Normal rhythm, Normal heart sounds - GI/Abdominal GI/Abdominal exam: Soft, Tenderness, Other (TTP over the suprapubic region on examination). negative: Rebound, Rigid - Rectal Rectal exam: Deferred - exam: Deferred - Extremities Extremities exam: Normal inspection. negative: Calf tenderness, Pedal edema, Tenderness - Back Back exam: Denies: CVA tenderness (R), CVA tenderness (L) - Neurological Neurological exam: Alert, Normal gait, Oriented X3 - Psychiatric Psychiatric exam: Normal affect, Normal mood - Skin Skin exam: Normal color. negative: Abrasion Type of lesion: negative: abrasion Course Vital Signs 01/04/18 19:51 Temperature 97.7 F Pulse Rate [ 92 H Pulse Ox Probe] Respiratory 20 Rate Blood Pressure 132/93 [Left Arm] Pulse Ox 95 - Reevaluation(s) Reevaluation #1: 10/01/18 20:37 Patient reassessed following catheterization, patient reports that she is feeling signifiacntly better. 500 mL output into the leg bag. UA reviewed 6-10 WBCs Few Bacteria present Will initiate treatment with Cipro in addition to her baseline Keflex that she takes prophylactically three times weekly. Patient and family agree with the plan of care as discussed, and the patient appears stable for discharge at this time. Disposition Disposition: Discharge Clinical Impression: Urinary retention UTI (urinary tract infection) Qualifiers: Urinary tract infection type: acute cystitis Hematuria presence: without hematuria Qualified Code(s): N30.00 - Acute cystitis without hematuria Disposition: Home, Self-Care Condition: (2) Stable Instructions: Acute Urinary Retention in Women (ED) Additional Instructions: Return to ED if your symptoms worsen or if you have any concerns. Follow-up with your Urologist in 1-3 days as directed for catheter removal. Cipro as directed. Prescriptions: Ciprofloxacin HCl [Cipro] 500 mg PO Q12HR #13 tablet Forms: Patient Portal Access Time of Disposition: 20:40 Quality - Quality Measures Quality Measures: N/A - Blood Pressure Screening Does Patient Have Any of the Following: Active Dx of HTN Blood Pressure Classification: Hypertensive Reading Systolic Measurement: 132 Diastolic Measurement: 93 Screening for High Blood Pressure: Patient Exclusion, Hx of HTN [G9744]
[2018-01-04 20:28] LABS: URINE APPEARANCE CLEAR; URINE BILIRUBIN NEGATIVE (NEGATIVE); URINE BLOOD SMALL (NEGATIVE); URINE COLOR YELLOW; URINE GLUCOSE (UA) NEGATIVE (NEGATIVE); URINE KETONE NEGATIVE (NEGATIVE); URINE LEUKOCYTE ESTERASE SMALL (NEGATIVE); URINE NITRITE POSITIVE (NEGATIVE)
[2018-01-04 20:36] LABS: URINE RBC 0 - 2 (NONE SEEN)
[2018-01-04 20:37] LABS: URINE BACTERIA FEW; URINE EPITHELIAL CELLS NONE SEEN (FEW)
[2018-01-04] MEDS ORDERED: CIPROFLOXACIN HCL 500 MG TABLET PO ONE (20:40)
== END 2018-01-04 21:02 | disposition home or self-care (01) ==
LOC: ER 19:44
DX: N30.00 Acute cystitis without hematuria (principal); R33.9 Retention of urine, unspecified; I10 Essential (primary) hypertension; Z98.890 Other specified postprocedural states
CPT/HCPCS: 81001

== ENCOUNTER → 2018-01-04 | Day surgery (SDC) | payer MEDICARE ==
[~2018-01-04] MED LIST: ACETAMINOPHEN 1,000 MG/100 ML BTL IV ONE; BUPIVACAINE 0.25% W/EPI MPF 30ML VIAL IVP ONE; CLINDAMYCIN 600MG/50ML PREMIX 600 MG/50 ML BAG IVPB ONE; DEXAMETHASONE 4 MG/ML 1ML VIAL IVP ONE; EPHEDRINE SULFATE 50 MG/ML ML IV ONE; FAMOTIDINE 20MG TABLET PO ONE; FENTANYL PF 100MCG/2ML VIAL IV ONE; GLYCOPYRROLATE 0.2 MG/ML ML IV ONE; HYDROCODONE/APAP 5/325MG TABLET PO ONE; LIDOCAINE 2% MDV (20MG/ML) 20ML VIAL IV ONE; MECLIZINE 25 MG TABLET PO ONE; METOCLOPRAMIDE 10 MG TABLET PO ONE; ONDANSETRON HCL IV 4 MG/2 ML VIAL IVP ONE; PROPOFOL 10 MG/ML VIAL IV ONE; ROCURONIUM BROMIDE 50MG/5ML VIAL IV ONE; ROPIVACAINE HCL (NAROPIN) /PF 5MG/ML 20ML VIAL IV ONE; SEVOFLURANE 250 ML INH ONE; SUCCINYLCHOLINE 20 MG/ML 10ML IVP ONE
--- NOTE | 2018-01-06 09:45 | Operative Note ---
DATE OF SURGERY: 01/04/2018 Surgeon: Linden Colon DO PREOPERATIVE DIAGNOSIS: Incarcerated ventral hernia. POSTOPERATIVE DIAGNOSIS: Incarcerated ventral hernia. OPERATION: Open ventral herniorrhaphy with mesh. Indication: The patient is a 72-year-old female who presented to the clinic with pain and bulging in the supraumbilical region. She clearly had an incarcerated hernia on exam. Risks, benefits, and alternatives were discussed. Risks include bleeding, infection, acute or chronic pain, recurrence. She understood this fully. Thereafter, consent was signed and questions answered. PROCEDURE: The patient was taken to the operating room and placed in a supine position. General anesthesia was administered per the department of anesthesia. The patient underwent a TAP block per the department of anesthesia. After this was done, her abdomen was prepped and draped in the usual fashion. The area around the hernia was anesthetized with a total of 10 mL of 0.25% Sensorcaine with epinephrine. A 3.5 cm incision was made. This was carried down through the subcutaneous tissues to hernia sac. This was dissected free from the surrounding tissue. Clean circumferential fascial edges were obtained. The hernia sac was entered and noted to contain preperitoneal fat. This was reduced. The hernia sac was amputated. We did stay in the preperitoneal space. This was dissected free with a sponge. The hernia measured about 1.5 cm. At this time, an [address] mesh was obtained. This was placed in the peritoneal position. Upper skirt was sutured to the fascia with 2-0 Vicryl. This was done in 6 spots. The tails overlapped the fascia and were sutured in place as well. The subcutaneous tissues were closed with 3-0 Vicryl. The skin was closed with kim. She was taken to the recovery room in satisfactory condition. FINDINGS AT THE TIME OF SURGERY: Incarcerated ventral hernia containing peritoneal fat. CC: GREG Weston
== END | disposition home or self-care (01) ==
LOC: SUR 06:48
PROVIDERS: ATTEND Surgery
DX: K43.6 Other and unspecified ventral hernia with obstruction, without gangrene (principal)
CPT/HCPCS: 49561; 00752; 64486; 51702; 99283 ×2; 81001; 76942; J2405; J3010; J2795; J0330

== ENCOUNTER 2018-11-30 21:04 | Emergency (ER) | payer MEDICARE ==
--- NOTE | 2018-11-30 21:16 | Emergency Department Record ---
History of Present Illness - General Chief complaint: Bite Insect/other Stated complaint: SORES ALLOVER Time Seen by Provider: 11/30/18 21:14 Source: Patient Mode of Arrival: Ambulatory Limitations: No limitations - History of Present Illness Initial comments: 73 yo female presents to ED for evaluation of numerous raised lesions/blisters that began 5-6 days ago. Patient reports itching symptoms, deneis fevers, chills, or recent illness. Patient reports that the lesions are mostly located at the dorsal aspect of the patient's elbows, knees bilaterally. Patient reports that she itches the lesions, they break open and then crust over. Patient denies any new medications as well, denies any new detergents, or new exposures. MD complaint: Lesion, Rash Onset/Timin -: Days(s) Hx Tetanus Toxoid Vaccination: Yes Year of Tetanus Vaccination: unknown Patient Tetanus UTD (within 5 yrs): No Location: LUE, RUE, LLE, RLE Severity: Mild Quality: Other Consistency: Constant Improves with: None Worsens with: None Context: None Associated symptoms: Denies other symptoms Treatments Prior to Arrival: None - Related Data Previous Rx's Medication Instructions Recorded Prednisone [Prednisone 20Mg] 20 mg PO BID #12 tab 11/30/18 Allergies Allergy/AdvReac Type Severity Reaction Status Date / Time Penicillins Allergy Mild RASH Verified 11/30/18 21:14 Travel Screening - Travel/Exposure Within Last 30 Days Have you traveled within the last 30 days?: No - Travel/Exposure Within Last Year Have you traveled outside the [place] in the last year?: No - Additonal Travel Details Have you been exposed to anyone with a communicable illness?: No - Travel Symptoms Symptom Screening: None Review of Systems Constitutional: Denies: Chills, Fever, Malaise, Night sweats Eyes: Denies: Eye discharge, Eye pain ENT: Denies: Congestion, Ear pain, Epistaxis Respiratory: Denies: Cough, Dyspnea Cardiovascular: Denies: Chest pain, Dyspnea on exertion Endocrine: Denies: Fatigue, Heat or cold intolerance Gastrointestinal: Denies: Abdominal pain, Nausea, Vomiting Genitourinary: Denies: Incontinence, Retention Musculoskeletal: Reports: Arthralgia (Knees bilaterally). Denies: Back pain, Gout, Joint swelling Skin: Reports: Rash. Denies: Bruising, Change in color Neurological: Denies: Abnormal gait, Confusion, Headache, Seizure Psychiatric: Denies: Anxiety Hematological/Lymphatic: Denies: Anemia, Blood Clots Past Medical History - SOCIAL HISTORY Smoking Status: Never smoker Alcohol Use: None Drug Use: None - RESPIRATORY Hx Respiratory Disorders: No - CARDIOVASCULAR Hx Cardio Disorders: Yes - NEURO Hx Neuro Disorders: Yes Hx Headaches: Yes (occassionally) Comment:: Benign essential tremors - GI Hx GI Disorders: Yes Hx Abdominal Pain: Yes (at times from hernia) - Hx Genitourinary Disorders: Yes Hx UTI: Yes (frequent controlled with 3 times a wk ABX) - ENDOCRINE Hx Endocrine Disorders: Yes - MUSCULOSKELETAL Hx Musculoskeletal Disorders: Yes Hx Arthritis: Yes (wrists) - PSYCH Hx Psych Problems: No Hx Anxiety: No - HEMATOLOGY/ONCOLOGY Hx Hematology/Oncology Disorders: Yes Hx Anemia: Yes (in past) Hx Blood Transfusions: Yes Hx Blood Transfusion Reaction: No Family Medical History Any Significant Family History?: Yes Hx Diabetes: Brother/Sister Hx Heart Disease: Brother/Sister Physical Exam - General General Appearance: Alert, Oriented x3, Cooperative, No acute distress Limitations: No limitations - Head Head exam: Atraumatic, Normocephalic, Normal inspection Head exam detail: negative: Abrasion, Contusion, Ramires's sign, General tenderness, Hematoma, Laceration - Eye Eye exam: Normal appearance. negative: Conjunctival injection, Periorbital swelling, Periorbital tenderness, Scleral icterus - ENT Ear exam: negative: Auricular hematoma, Auricular trauma Nasal Exam: negative: Active bleeding, Discharge, Dried blood, Foreign body Mouth exam: negative: Drooling, Laceration, Muffled voice, Tongue elevation - Neck Neck exam: Normal inspection. negative: Meningismus, Tenderness - Respiratory Respiratory exam: Normal lung sounds bilaterally. negative: Rales, Respiratory distress, Rhonchi, Stridor - Cardiovascular Cardiovascular Exam: Regular rate, Normal rhythm, Normal heart sounds - GI/Abdominal GI/Abdominal exam: Soft. negative: Rebound, Rigid, Tenderness - Rectal Rectal exam: Deferred - exam: Deferred - Extremities Extremities exam: Other (Small, raised individual lesions to the knees bilaterally, elbow bilaterally on examination. Most have crusted over appearance, 1-2 have small amount of white material within the lesion.). negative: Calf tenderness, Pedal edema, Tenderness - Back Back exam: Denies: CVA tenderness (R), CVA tenderness (L) - Neurological Neurological exam: Alert, Normal gait, Oriented X3 - Psychiatric Psychiatric exam: Normal affect, Normal mood - Skin Skin exam: Rash Distribution of rash: RUE, LUE, RLE, LLE Description of rash: Blisters, Vesicular Course Vital Signs 11/30/18 21:07 Temperature 97.3 F L Pulse Rate 80 Respiratory 18 Rate Blood Pressure 106/65 Pulse Ox 98 - Reevaluation(s) Reevaluation #1: 11/30/18 21:26 Patient was seen and examined Numerous isolated lesions with mild erythematous base, most appears scabbed over. Findings are not c/w bacterial cellulitis, fungal infection, or typical contact dermatitis. Lesions may be the result os insect bites vs. probable viral etiology. Will prescribe prednisone for her symptoms in an attempt to slow the patient's response to these lesions. Patient is otherwise well appearing and stable for discharge at this time. Disposition Disposition: Discharge Clinical Impression: Dermatitis Disposition: Home, Self-Care Condition: (2) Stable Instructions: Dermatitis (ED) Additional Instructions: Return to ED if your symptoms worsen or if you have any concerns. Prednisone as directed. Follow-up with your family doctor in 3-5 days as directed. Prescriptions: Prednisone [Prednisone 20Mg] 20 mg PO BID #12 tab Forms: Patient Portal Access Time of Disposition: 21:16 Quality - Quality Measures Quality Measures: N/A - Blood Pressure Screening Does Patient Have Any of the Following: No Blood Pressure Classification: Normal BP Reading Systolic Measurement: 106 Diastolic Measurement: 65 Screening for High Blood Pressure: < Normal BP, F/U Not Required > [G8783]
== END 2018-11-30 21:25 | disposition home or self-care (01) ==
LOC: ER 21:04
DX: L30.9 Dermatitis, unspecified (principal)
CPT/HCPCS: 99282

== ENCOUNTER 2019-05-09 11:15 | Emergency (ER) | payer MEDICARE ==
[2019-05-09] MEDS ORDERED: MORPHINE SULFATE 5 MG/ML VIAL IM ONE (11:36)
--- NOTE | 2019-05-09 12:02 | Emergency Department Record ---
History of Present Illness - General Chief Complaint: Knee injury Stated Complaint: LEFT KNEE INJURY Time Seen by Provider: 05/09/19 11:33 Source: Patient Mode of Arrival: Wheelchair Limitations: No limitations - History of Present Illness Initial Comments: pt slipped in bathroom this am and injured her l knee. she is unable to bear wt and it is very painful to move. MD Complaint: Knee injury Injury: Knee: Left Type of Injury: Hyperflexion Place: Home Severity: Mild Severity scale (1-10): 4 Improves With: Immobilization Worsens With: Movement, Palpation, Weight bearing Context: Fall Associated Symptoms: Swelling, Unable to bear weight - Related Data Home Medications Medication Instructions Recorded Confirmed Last Taken L.acidoph,Paracasei, B.lactis 1 each PO DAILY 05/09/19 05/09/19 Unknown [Probiotic] Previous Rx's Medication Instructions Recorded Hydrocodone/Acetaminophen [Comfrey 0.5 - 1 tab PO TID PRN #10 tab 05/09/19 5mg/325mg] Allergies Allergy/AdvReac Type Severity Reaction Status Date / Time Penicillins Allergy Mild RASH Verified 05/09/19 11:26 Travel Screening - Travel/Exposure Within Last 30 Days Have you traveled within the last 30 days?: No Review of Systems Reviewed: No additional complaints except as noted below Constitutional: Reports: As per HPI. Denies: Chills, Fever, Malaise, Night sweats, Weakness, Weight change Eyes: Reports: As per HPI. Denies: Eye discharge, Eye pain, Photophobia, Vision change ENT: Reports: As per HPI. Denies: Congestion, Dental pain, Ear pain, Epistaxis, Hearing loss, Throat pain Respiratory: Reports: As per HPI. Denies: Cough, Dyspnea, Hemoptysis, Stridor, Wheezes Cardiovascular: Reports: As per HPI. Denies: Arrhythmia, Chest pain, Dyspnea on exertion, Edema, Murmurs, Orthopnea, Palpitations, Paroxysmal nocturnal dyspnea, Rheumatic Fever, Syncope Endocrine: Reports: As per HPI. Denies: Fatigue, Heat or cold intolerance, Polydipsia, Polyuria Gastrointestinal: Reports: As per HPI. Denies: Abdominal pain, Constipation, Diarrhea, Hematemesis, Hematochezia, Melena, Nausea, Vomiting Genitourinary: Reports: As per HPI. Denies: Abnormal menses, Discharge, Dyspareunia, Dysuria, Frequency, Hematuria, Incontinence, Retention, Urgency Musculoskeletal: Reports: As per HPI. Denies: Arthralgia, Back pain, Gout, Joint swelling, Myalgia, Neck pain Skin: Reports: As per HPI. Denies: Bruising, Change in color, Change in hair/nails, Lesions, Pruritus, Rash Neurological: Reports: As per HPI. Denies: Abnormal gait, Confusion, Headache, Numbness, Paresthesias, Seizure, Tingling, Tremors, Vertigo, Weakness Psychiatric: Reports: As per HPI. Denies: Anxiety, Auditory hallucinations, Depression, Homicidal thoughts, Suicidal thoughts, Visual hallucinations Hematological/Lymphatic: Reports: As per HPI. Denies: Anemia, Blood Clots, Easy bleeding, Easy bruising, Swollen glands Past Medical History - SOCIAL HISTORY Smoking Status: Never smoker Alcohol Use: None Drug Use: None - RESPIRATORY Hx Respiratory Disorders: No - CARDIOVASCULAR Hx Cardio Disorders: Yes - NEURO Hx Neuro Disorders: Yes Hx Headaches: Yes (occassionally) Comment:: Benign essential tremors - GI Hx GI Disorders: Yes Hx Abdominal Pain: Yes (at times from hernia) - Hx Genitourinary Disorders: Yes Hx UTI: Yes (frequent controlled with 3 times a wk ABX) - ENDOCRINE Hx Endocrine Disorders: Yes - MUSCULOSKELETAL Hx Musculoskeletal Disorders: Yes Hx Arthritis: Yes (wrists) - PSYCH Hx Psych Problems: No Hx Anxiety: No - HEMATOLOGY/ONCOLOGY Hx Hematology/Oncology Disorders: Yes Hx Anemia: Yes (in past) Hx Blood Transfusions: Yes Hx Blood Transfusion Reaction: No Family Medical History Any Significant Family History?: Yes Hx Diabetes: Brother/Sister Hx Heart Disease: Brother/Sister Physical Exam - General General Appearance: Alert, Oriented x3, Cooperative, Mild distress - Head Head exam: Normal inspection - Eye Eye exam: Normal appearance, PERRL, EOMI Pupils: Normal accommodation - ENT ENT exam: Normal exam, Mucous membranes moist, Normal external ear exam, Normal orophraynx Ear exam: Normal external inspection. negative: External canal tenderness Nasal Exam: Normal inspection. negative: Discharge, Sinus tenderness Mouth exam: Normal external inspection, Tongue normal Teeth exam: Normal inspection. negative: Dental caries Throat exam: Normal inspection. negative: Tonsillar erythema, Tonsillar exudate - Neck Neck exam: Normal inspection, Full ROM. negative: Tenderness - Respiratory Respiratory exam: Normal lung sounds bilaterally. negative: Respiratory distress - Cardiovascular Cardiovascular Exam: Regular rate, Normal rhythm, Normal heart sounds - GI/Abdominal GI/Abdominal exam: Soft, Normal bowel sounds. negative: Tenderness - Rectal Rectal exam: Deferred - exam: Deferred - Extremities Extremities exam: Joint swelling, Normal capillary refill, Tenderness. negative: Full ROM - Back Back exam: Reports: Normal inspection, Full ROM. Denies: Muscle spasm, Rash noted, Tenderness - Neurological Neurological exam: Alert, Normal gait, Oriented X3, Reflexes normal - Psychiatric Psychiatric exam: Normal affect, Normal mood - Skin Skin exam: Dry, Intact, Normal color, Warm Course Vital Signs 05/09/19 11:23 Temperature 98.0 F Pulse Rate 69 Respiratory 20 Rate Blood Pressure 124/84 Pulse Ox 97 - Reevaluation(s) Reevaluation #1: 05/09/19 13:07 xr-lateral tibial plateau fx d/w dr flanagan who will see pt Disposition Disposition: Discharge Clinical Impression: Tibial plateau fracture, left Qualifiers: Encounter type: initial encounter Fracture type: closed Qualified Code(s): S82.142A - Displaced bicondylar fracture of left tibia, initial encounter for closed fracture Disposition: Home, Self-Care Condition: (1) Good Instructions: Leg Fracture (ED) Additional Instructions: follow up with dr flanagan on thursday. return sooner if worse. ice and elevate. motrin for pain Prescriptions: Hydrocodone/Acetaminophen [Comfrey 5mg/325mg] 0.5 - 1 tab PO TID PRN #10 tab PRN Reason: Pain - General Referrals: Conrad Flanagan [DOCTOR OF OSTEOPATH] - [facility] [Provider Group] Forms: Patient Portal Access Quality - Quality Measures Quality Measures: N/A - Blood Pressure Screening Does Patient Have Any of the Following: No Blood Pressure Classification: Pre-Hypertensive BP Reading Systolic Measurement: 124 Diastolic Measurement: 84 Screening for High Blood Pressure: < Pre-Hypertensive BP, F/U Documented > [G8950] Pre-Hypertensive Follow-up Interventions: Follow-up with rescreen every year.
--- NOTE | 2019-05-09 12:28 | RADIOLOGY REPORT ---
EXAMINATION: Left Knee Complete, Four or More Views EXAM DATE: 05/09/2019 12:05 PM TECHNIQUE: Frontal, lateral, oblique and tunnel view INDICATION: injury COMPARISON: None ENCOUNTER: Initial FINDINGS: There is a fracture through the lateral tibial plateau with mild comminution. 3 mm maximal depression of the bone fragments. No additional fracture identified. There is a large suprapatellar joint effus ion. IMPRESSION: Comminuted and mildly displaced fracture through the lateral tibial plateau. Dictated by: Adan Urias MD on 05/09/2019 12:25 PM. .
== END 2019-05-09 13:52 | disposition home or self-care (01) ==
LOC: ER 11:15
DX: S82.142A Displaced bicondylar fracture of left tibia, initial encounter for closed fracture (principal); W01.190A Fall on same level from slipping, tripping and stumbling with subsequent striking against furniture, initial encounter; Y92.002 Bathroom of unspecified non-institutional (private) residence as the place of occurrence of the external cause
CPT/HCPCS: 96372; 99284